=== PATIENT | female | born 1965 | race Two or more races ===

== ENCOUNTER 2018-10-18 17:58 | Emergency (ER) | payer SELFPAY ==
[~2018-10-18] VITALS: Ht 165.1 cm; Wt 81.6 kg
[2018-10-18 18:18] VITALS: BP 144/88
[2018-10-18] MEDS ORDERED: METHOCARBAMOL 500 MG TAB PO ONE (20:30)
[2018-10-18] MEDS ORDERED: IBUPROFEN 800 MG TAB PO ONE (20:30)
== END 2018-10-18 20:55 | disposition home or self-care (01) ==
LOC: EDBD 17:58 → ER 18:09
DX: S00.03XA Contusion of scalp, initial encounter (principal); V73.1XXA Passenger on bus injured in collision with car, pick-up truck or van in nontraffic accident, initial encounter; Y93.89 Activity, other specified; Y99.8 Other external cause status; Y92.410 Unspecified street and highway as the place of occurrence of the external cause
CPT/HCPCS: 70450